=== PATIENT | female | born 1995 | race Caucasian/White ===

== ENCOUNTER 2020-10-26 07:15 | Day surgery (SDCO) | payer OTHER ==
[~2020-10-26] VITALS: Ht 172.7 cm; Wt 67.1 kg
[2020-10-26 08:01] LABS: HCG (URINE) SCREEN NEGATIVE (NEGATIVE)
[2020-10-26 08:12] LABS: HCT 39.9 % (37.0-47.0); HGB 13.3 g/dl (12.5-16.0); MCH 30.2 pg (25.0-31.0); MCHC 33.3 g/dL (32.0-36.0); MCV 90.5 fL (78.0-100.0); MPV 11.8 fL (6.0-9.5); RBC 4.41 M/uL (4.20-5.40); WBC 6.1 K/uL (4.0-10.5)
[2020-10-26 08:30] LABS: ALBUMIN 3.7 g/dL (3.4-5.0); BILIRUBIN - TOTAL 0.3 mg/dL (0.2-1.0); CREATININE 0.75 mg/dL (0.51-0.95); TOTAL PROTEIN 7.7 g/dL (6.4-8.2)
[2020-10-26] MEDS ORDERED: NORCO 5-325 TA1 EACH PO (12:31)
[2020-10-26] MEDS ORDERED: KETOROLAC TROME10 MG PO (12:31)
== END 2020-10-26 12:00 | disposition home or self-care (01) ==
LOC: FSDC 07:15 → FMS 08:00 → FSDC 12:00
PROVIDERS: Anesthesiology; ADMIT Specialist
DX: N72 Inflammatory disease of cervix uteri (principal); N80.0 Endometriosis of uterus; N73.6 Female pelvic peritoneal adhesions (postinfective); N94.5 Secondary dysmenorrhea; J45.909 Unspecified asthma, uncomplicated; F31.9 Bipolar disorder, unspecified
CPT/HCPCS: 36415; 80053; 84703; 86850; 86900; 86901; G0378; J0690; J1100; J1170; J1885; J2250; J2405; J2704; J2710; J3010; J7120

== ENCOUNTER 2020-10-29 17:43 | Emergency (ER) | payer OTHER ==
[~2020-10-29 17:43] MED LIST: KETOROLAC TROME10 MG PO; NORCO 5-325 TA1 EACH PO
[2020-10-29 22:17] LABS: BASOPHIL 0.5 % (0-2); EOSINOPHIL 2.3 % (0-5); HCT 39.2 % (37.0-47.0); HGB 13.3 g/dl (12.5-16.0); LYMPHOCYTE 22.9 % (15-48); MCH 30.2 pg (25.0-31.0); MCHC 33.9 g/dL (32.0-36.0); MCV 88.9 fL (78.0-100.0); MONOCYTE 5.4 % (0-12); MPV 11.4 fL (6.0-9.5); NEUTROPHIL 68.7 % (41-80); NRBC 0; PLT 194 K/uL (150-400); RBC 4.41 M/uL (4.20-5.40); RDW 11.9 % (11.5-14.0)
[2020-10-29 22:37] LABS: BUN/CREAT RATIO (CALC) 13.6 RATIO; CREATININE 0.59 mg/dL (0.51-0.95); POTASSIUM 4.1 mmol/L (3.5-5.1)
== END 2020-10-30 00:27 | disposition home or self-care (01) ==
LOC: FER 17:43
PROVIDERS: Nurse Practitioner Family
DX: Z48.816 Encounter for surgical aftercare following surgery on the genitourinary system (principal); Z90.710 Acquired absence of both cervix and uterus; Z88.8 Allergy status to other drugs, medicaments and biological substances
CPT/HCPCS: 36415; 80048; 85025; J2270; J2405; J7030

== ENCOUNTER 2021-08-11 15:53 | Emergency (ER) | payer OTHER ==
[2021-08-11 17:24] LABS: BASOPHIL 0.7 % (0-2); EOSINOPHIL 6.2 % (0-5); HCT 40.9 % (37.0-47.0); HGB 14.3 g/dl (12.5-16.0); LYMPHOCYTE 24.7 % (15-48); MCH 31.4 pg (25.0-31.0); MCV 89.9 fL (78.0-100.0); MONOCYTE 9.7 % (0-12); MPV 11.3 fL (6.0-9.5); NEUTROPHIL 58.5 % (41-80); NRBC 0; PLT 196 K/uL (150-400); RBC 4.55 M/uL (4.20-5.40); RDW 11.7 % (11.5-14.0); WBC 8.7 K/uL (4.0-10.5)
[2021-08-11 17:39] LABS: ALBUMIN 3.9 g/dL (3.4-5.0); BILIRUBIN - TOTAL 0.4 mg/dL (0.2-1.0); CREATININE 0.6 mg/dL (0.51-0.95); GLOBULIN (CALCULATION) 4.2 g/dL; POTASSIUM 3.3 mmol/L (3.5-5.1); TOTAL PROTEIN 8.1 g/dL (6.4-8.2)
[2021-08-11] MEDS ORDERED: PEPCID AC20 MG PO (19:01)
== END 2021-08-11 19:45 | disposition home or self-care (01) ==
LOC: FER 15:53
PROVIDERS: Emergency Medicine
DX: R07.89 Other chest pain (principal); Z88.8 Allergy status to other drugs, medicaments and biological substances
CPT/HCPCS: 36415; 71045; 71275; 80053; 84484; 84703; 85025; 93005; Q9967